=== PATIENT | female | born 1940 | race Caucasian/White ===

== ENCOUNTER 2017-09-11 10:24 | Outpatient (CLI) | payer OTHER | END 2017-09-11 16:52 | disposition home or self-care (01) | LOC: SMA 10:24 | PROVIDERS: ATTEND Family Medicine | DX: Z12.31 Encounter for screening mammogram for malignant neoplasm of breast (principal) | CPT/HCPCS: G0202 ==

== ENCOUNTER 2019-01-31 15:23 | Outpatient (CLI) | payer OTHER | END 2019-02-01 21:26 | disposition home or self-care (01) | LOC: SMA 15:23 | PROVIDERS: ATTEND Family Medicine | DX: Z12.31 Encounter for screening mammogram for malignant neoplasm of breast (principal) | CPT/HCPCS: 77067 ==

== ENCOUNTER 2021-06-14 10:26 | Outpatient (CLI) | payer OTHER | END 2021-06-14 17:33 | disposition home or self-care (01) | LOC: SMA 10:26 | PROVIDERS: ATTEND Family Medicine | DX: Z12.31 Encounter for screening mammogram for malignant neoplasm of breast (principal); N64.89 Other specified disorders of breast | CPT/HCPCS: 77067 ==